=== PATIENT | female | born 1970 | race Caucasian/White ===

== ENCOUNTER 2019-09-20 08:52 | Outpatient (CLI) | payer OTHER, SELFPAY ==
[2019-09-20 09:20] LABS: Add Urine Microscopic? YES; Appearance Urine Turbid (Clear); Bacteria Urine 1+ /hpf; Bilirubin Urine Negative (Negative); Blood Urine 1+ (Negative); Color Urine Yellow (Yellow); Glucose Urine UA Negative (Negative); Ketones Urine Negative (Negative); Leukocyte Esterase Ur 3+ LEU/UL (Negative); Mucus Urine Moderate /lpf; Nitrate Urine Negative (Negative); Protein Urine 2+ mg/dL (Negative); RBC Urine 51-75 /hpf (0-2); Specific Grav Ur 1.019 (1.001-1.035); Squamous Epithelial Cell Urine Many /hpf (Few); WBC Urine >75 /hpf
== END 2019-09-20 08:53 | disposition home or self-care (01) ==
PROVIDERS: PCP Internal Medicine; Visit Provider Internal Medicine
DX: R30.0 Dysuria (principal)
CPT/HCPCS: 81001; 87077; 87086; 87088; 87186

== ENCOUNTER → 2020-11-06 16:49 | Outpatient (CLI) | payer OTHER, SELFPAY ==
--- NOTE | ~2020-11-06 | MM_ITS ---
EXAMINATION: MM screening [facility] BI w [facility]ally HISTORY: Screening mammogram TECHNIQUE: Craniocaudal and mediolateral oblique 3-D tomosynthesis images were obtained and synthetic 2-D images were generated. CAD analysis was submitted and interpreted. COMPARISON: No prior mammogram is available for comparison at this institution. BREAST PARENCHYMAL COMPOSITION: There are scattered areas of fibroglandular density. FINDINGS: There are 2 biopsy markers on the right; history of prior benign right breast biopsy. New 5.5 mm mass in the lower inner quadrant of the right breast. Approximately 3.4 x 4.4 mm circumscribed density in the right axillary tail, increased in size from a pproximately 2.4 x 3.8 mm on 07/31/2018. 3.5 mm circumscribed opacity in the posterior upper left breast (left MLO Tomosynthesis image ). Diagnostic bilateral mammogram and breast ultrasound examination are recommended. IMPRESSION: 1. Bilateral breast masses 2. Diagnostic bilateral mammogram and breast ultrasound are recommended BI-RADS Category 0: Incomplete: Needs additional imaging evaluation. Reviewed, dictated and finalized at location A.
== END ==
PROVIDERS: Visit Provider Physician Assistant
DX: Z12.31 Encounter for screening mammogram for malignant neoplasm of breast (principal); R92.8 Other abnormal and inconclusive findings on diagnostic imaging of breast
CPT/HCPCS: 77063; 77067

== ENCOUNTER → 2020-12-02 08:16 | Outpatient (CLI) | payer OTHER, SELFPAY ==
--- NOTE | ~2020-12-02 | MMUS_ITS ---
EXAMINATION: MM diagnostic mammo BI, US breast LT limited, US breast RT complete HISTORY: Bilateral breast masses reported on 11/06/2020 screening mammogram TECHNIQUE: Additional 3-D tomosynthesis images of both breasts were performed and synthetic 2-D image s were generated. CAD analysis was submitted and interpreted. High resolution complete right and uppe r outer quadrant left breast ultrasound was performed. COMPARISON: 11/06/2020 bilateral digital screening mammogram 01/30/2015 bilateral digital screening mammogram FINDINGS: MAMMOGRAPHIC FINDINGS: Partially circumscribed 5 mm mass is noted in the lower inner quadrant of the left breast. Circumscribed 3.8 mm mass at the posterior aspect of the upper outer left breast, most likely a benig n intramammary lymph node. Otherwise no new suspicious mammographic mass of either breast is evident compared to 03/04/2015. Stable benign circumscribed right axillary tail lymph node compared to 01/30/2015. Diminished size and density of a mass in the upper mid right breast slightly lateral to the mid sagit helen plane since 01/30/2015. There are 2 biopsy markers on the right. History of prior benign right breast biopsies. ULTRASOUND: Right breast: 12:00 3 cm from nipple: 9 x 4 x 9.5 mm circumscribed hypoechoic area which likely corresponds to the upper mid right mammographic mass which has diminished in size and density since 01/30/2015, most cons istent with benign process. 6:00 5 cm from nipple: Circumscribed heterogeneous hypoechoic 5.5 x 3 x 5 mm lesion without internal vascularity or posterior shadowing. 6 month targeted right breast ultrasound follow-up is recommended . 10:00 4 cm from nipple: Parallel circumscribed 4 x 8 x 8 mm hypoechoic lesion without posterior featu res; six-month follow-up ultrasound is recommended. Left breast: Benign circumscribed intramammary lymph node measuring approximately 2 x 5.8 mm is noted at 3:00 10 c m from nipple. IMPRESSION: 1. Probably benign right sonographic lesions at 6:00 5 cm from nipple and 10:00 4 cm from nipple 2. Six-month targeted right breast ultrasound follow-up is recommended. BI-RADS category 3, probably benign findings. Reviewed, dictated and finalized at location A. IMPRESSION: 1. Probably benign right sonographic lesions at 6:00 5 cm from nipple and 10:00 4 cm from nipple 2. Six-month targeted right breast ultrasound follow-up is recommended. BI-RADS category 3, probably benign findings. IMPRESSION: 1. Probably benign right sonographic lesions at 6:00 5 cm from nipple and 10:00 4 cm from nipple 2. Six-month targeted right breast ultrasound follow-up is recommended. BI-RADS category 3, probably benign findings.
== END ==
PROVIDERS: PCP Internal Medicine; Visit Provider Physician Assistant
DX: R92.8 Other abnormal and inconclusive findings on diagnostic imaging of breast (principal)
CPT/HCPCS: 76641; 76642; 77066

== ENCOUNTER 2021-11-28 11:23 | Emergency (ER) | payer OTHER, SELFPAY ==
[2021-11-28 11:40] VITALS: BP 109/69; PULSE 91; RESP 18; TEMP 36.6; O2SAT 99
--- NOTE | 2021-11-28 12:41 | ED.FEMALEGU ---
HPI - Female Genitourinary General Chief complaint: Urogenital-Female Stated complaint: Sore Throat,Possible UTI Time Seen by Provider: 11/28/21 12:41 Source: patient Mode of arrival: ambulatory Limitations: no limitations History of Present Illness HPI Narrative: Casie Neville is a 51 yo female with a PMH of depression, insomnia, GERD, stopped smoking 2019,recurrent uti, who comes with upper respiratory symptoms that started last Tuesday and feeling of dysuria and lower abdominal discomfort CVA tenderness that started 2 days ago. Patient has a history of UTI recurrent Related Data Home Medications Medication Instructions Recorded Confirmed fluoxetine 20 mg PO DAILY 11/28/21 11/28/21 omeprazole 20 mg PO DAILY 11/28/21 11/28/21 quetiapine 50 mg PO DAILY 11/28/21 11/28/21 Allergies Allergy/AdvReac Type Severity Reaction Status Date / Time Penicillins AdvReac Mild Hives Verified 11/28/21 12:24 Review of Systems Review of Systems: CONSTITUTIONAL: Denies fever, chills, sweats. Feels poorly EYES: Denies visual changes, redness, discharge. ENT: Denies rhinorrhea, has congestion, sore throat, otalgia. CARDIOVASCULAR: Denies chest pain, palpitations, edema. RESPIRATORY: Denies dyspnea, wheezing, cough GASTROINTESTINAL: Denies abdominal pain, nausea, vomiting, diarrhea. GENITOURINARY: Has dysuria, hematuria, abnormal discharge SKIN: Denies rash or itching. NEUROLOGIC: Denies numbness, or focal weakness. PSYCHIATRIC: Denies anxiety or depression. PMFSH Past Medical History Medical History Recurrent UTI Sinus problem Social History Social History (Updated 11/28/21 @ 12:45 by Dorene Guallpa CNP) Smoking status: Former smoker Smoking end date: 07/11/18 Alcohol intake: current Comments At time of signature, I agree with nursing past medical, surgical, social and family history. There is no relevant family history pertinent to the presenting complaint. Exam Narrative: GENERAL: This is a well-nourished, well-developed patient, in mild distress. Looks like is not feeling well HEAD: normocephalic, atraumatic. EYES: Sclera clear/white. Vision is grossly intact. EARS: External ears normal, auditory canals clear and without drainage, . Hearing grossly intact. NOSE: External nose normal without nasal discharge, nares without redness, has rhinorrhea. THROAT: Mucous membranes moist, posterior pharynx erythema NECK: Neck supple, CARDIOVASCULAR: Regular rate and rhythm without murmurs, gallops, or rubs. RESPIRATORY: Clear to auscultation. Breath sounds equal bilaterally. No wheezes, rales, or rhonchi. GASTROINTESTINAL: Abdomen soft, non-tender, SKIN: warm, intact with no suspicious lesions or rash, good texture and turgor. NEURO: awake, alert, and oriented to person, place and time. There were no obvious focal neurologic abnormalities. Steady gait EXTREMITIES: Normal range of motion. BACK: Mild left CVA tender Course Course Emergency Course: Patient comes with upper respiratory symptoms and also symptoms of dysuria Strep test was negative UA shows 1+ leukocytes and 1+ blood Started on Keflex and Medrol Dosepak-because of her difficulties to sleeping on her other medication told patient to take all steroids in the morning but stay on the gradual taper that is provided in the Medrol Dosepak Level of Care: Express Care Visit Vital Signs Vital signs: Vital Signs Temperature 97.9 F 11/28/21 11:40 Pulse Rate 91 11/28/21 11:40 Respiratory Rate 18 11/28/21 11:40 Blood Pressure 109/69 11/28/21 11:40 Pulse Oximetry 99 11/28/21 11:40 Temperature 97.9 F 11/28/21 11:40 Pulse Rate 91 11/28/21 11:40 Respiratory Rate 18 11/28/21 11:40 Blood Pressure 109/69 11/28/21 11:40 Pulse Oximetry 99 11/28/21 11:40 MDM - Female Genitourinary Differential Diagnosis Differential diagnosis: Likely urinary tract infection, cystitis and other
== END 2021-11-28 12:58 | disposition home or self-care (01) ==
PROVIDERS: Emergency Provider Nurse Practitioner; PCP Internal Medicine
DX: N30.90 Cystitis, unspecified without hematuria (principal); J06.9 Acute upper respiratory infection, unspecified; Z87.891 Personal history of nicotine dependence; F32.A Depression, unspecified; K21.9 Gastro-esophageal reflux disease without esophagitis
CPT/HCPCS: 81003; 87077; 87081; 87086; 87186; 87880; 99203; G0463

== ENCOUNTER 2022-06-04 11:35 | Outpatient (CLI) | payer OTHER, SELFPAY ==
[2022-06-04 12:35] LABS: Appearance Urine Slightly Cloudy (Clear); Bilirubin Urine Negative (Negative); Blood Urine 1+ (Negative); Color Urine Yellow (Yellow); Glucose Urine UA Negative (Negative); Ketones Urine Negative (Negative); Leukocyte Esterase Ur 2+ LEU/UL (Negative); Nitrate Urine Negative (Negative); Protein Urine Negative (Negative); Specific Grav Ur 1.015 (1.001-1.035); Urobilinogen Urine 0.2 mg/dL (<2.0)
[2022-06-04 13:01] LABS: Bacteria Urine Trace /hpf; Mucus Urine Rare /lpf; Squamous Epithelial Cell Urine Few /hpf (Few); WBC Urine 51-75 /hpf
[2022-06-04 13:02] LABS: Add Urine Microscopic? YES
== END 2022-06-04 11:36 | disposition home or self-care (01) ==
LOC: ANHLAB 11:38
PROVIDERS: PCP Internal Medicine; Visit Provider Internal Medicine
DX: R30.0 Dysuria (principal)
CPT/HCPCS: 81001; 87086; 87088

== ENCOUNTER 2022-06-21 15:59 | Outpatient (CLI) | payer OTHER, SELFPAY ==
--- NOTE | ~2022-06-21 | XR_ITS ---
EXAM: XR foot RT min 3V DATE: 06/21/2022 17:41 HISTORY: PAIN AFTER INJURY 3 WKS AGO. REDNESS TO 2-4 METATARSALS . COMPARISON: None available. FINDINGS: Normal mineralization. Nondisplaced transverse fracture at the third metatarsal head, with evidence of early healing change. No lytic or blastic lesion. Moderate hallux valgus and first MTP j oint degenerative change. No erosion or periosteal change. Soft tissues within normal limits. IMPRESSION: Subacute nondisplaced transverse third metatarsal head fracture. Reviewed, dictated and finalized at location K. DEVELOPER
== END 2022-06-21 16:00 | disposition home or self-care (01) ==
LOC: ANHIMG 16:03
PROVIDERS: PCP Internal Medicine; Visit Provider Internal Medicine
DX: S92.334A Nondisplaced fracture of third metatarsal bone, right foot, initial encounter for closed fracture (principal); X58.XXXA Exposure to other specified factors, initial encounter
CPT/HCPCS: 73630

== ENCOUNTER 2022-10-16 09:05 | Emergency (ER) | payer OTHER, SELFPAY ==
[2022-10-16 09:14] VITALS: BP 104/70; PULSE 92; RESP 20; TEMP 37; O2SAT 99
--- NOTE | 2022-10-16 09:53 | ED.GENADULT ---
HPI - General Adult General Chief complaint: Upper Respiratory Infection Stated complaint: Vomiting,Diarrhea,Body Aches,Possible UTI Time Seen by Provider: 10/16/22 09:43 Source: patient Mode of arrival: ambulatory Limitations: no limitations History of Present Illness HPI narrative: Patient presents today complaining of lower abdominal and back pain since yesterday with urinary retention and malodorous urine with urinary frequency. Two days ago she experienced chills, body aches, vomiting and diarrhea that has since mostly subsided. Still has been able to keep down oral fluids and is producing normal amount of urine. She has tried [id number] Tylenol for back pain. Related Data Home Medications Medication Instructions Recorded Confirmed fluoxetine 20 mg capsule (Prozac) 40 mg PO DAILY 05/26/20 10/16/22 omeprazole 20 mg capsule,delayed 20 mg PO DAILY 11/28/21 10/16/22 release quetiapine 50 mg tablet 50 mg PO DAILY 11/28/21 10/16/22 lamotrigine 25 mg tablet 50 mg PO HS 10/16/22 10/16/22 Allergies Allergy/AdvReac Type Severity Reaction Status Date / Time Penicillins AdvReac Mild Hives Verified 10/16/22 09:19 Review of Systems Review of Systems: CONSTITUTIONAL: Denies fever, chills, or sweats.+ body aches EYES: Denies visual changes, redness, or discharge. ENT: Denies rhinorrhea, congestion, sore throat, or otalgia. CARDIOVASCULAR: Denies chest pain, palpitations, or edema. RESPIRATORY: Denies cough or dyspnea. GASTROINTESTINAL: Denies vomiting, or diarrhea.+ lower abdominal pain, nausea GENITOURINARY: Denies dysuria or hematuria.+ urinary retention, malodorous urine, urinary frequency SKIN: Denies rash, itching, or wounds. MUSCULOSKELETAL: Denies joint pain, or myalgia.+ low back pain NEUROLOGIC: Denies headache, numbness, tingling, or weakness. PSYCH: Denies depression or anxiety. [facility] Past Medical History Medical History Anemia BMI 26.0-26.9,adult Recurrent UTI Sinus problem Family History Family History Mother Patient's mother is in good health Family history of malignant neoplasm of kidney Father Patient's father is in good health Social History Social History Smoking packs per day: 1 Smoking cigarettes per day: 20.0 Years smoked: 35 Smoking pack-years: 35.00 Smoking status: Former smoker Second hand tobacco smoke exposure: No Smoking end date: 07/11/18 Alcohol intake: current Lack of Transportation: No Lack of Food: Never True Current Housing: I Have Housing Concerned About Future Housing: No Difficulty Paying Gas/Electric Bills: No Difficulty Paying for Meds: No Currently Unemployed: Decline to Answer Education: Associate Degree Difficulty w/ Childcare or Family Care: No Comments At time of signature, I have reviewed and agree with nursing past medical, surgical, social and family history unless otherwise noted. Please see nursing chart for further information. There is no relevant family history pertinent to the presenting complaint Exam Narrative: GENERAL: Well-appearing, well-nourished, and in no acute distress. HEAD: Normocephalic, atraumatic. EYES: EOMI. No redness or drainage. Conjunctivae normal. ENT: Mucous membranes pink and moist. Nares clear. NECK: Normal AROM. Supple. No lymphadenopathy. CHEST: No respiratory distress. Clear to auscultation. HEART: Regular rate and rhythm. No murmur appreciated. Normal peripheral pulses. ABDOMEN: Soft, nondistended, normal active bowel sounds.+ mild suprapubic tenderness.-CVAT EXTREMITIES: Normal range of motion. No edema. SKIN: Warm, dry, no rash. Capillary refill normal. Normal skin turgor. NEURO: No focal deficits. Alert and oriented x3. Gait steady. PSYCH: Normal affect. No signs of depression or anxiety.
== END 2022-10-16 10:00 | disposition home or self-care (01) ==
PROVIDERS: Emergency Provider Nurse Practitioner; PCP Internal Medicine
DX: N30.01 Acute cystitis with hematuria (principal); Z87.891 Personal history of nicotine dependence
CPT/HCPCS: 81003; 87077; 87086; 87186; 99213; G0463

== ENCOUNTER 2022-11-04 09:39 | Emergency (ER) | payer OTHER, SELFPAY ==
--- NOTE | ~2022-11-04 | XR_ITS ---
EXAMINATION: XR ankle LT min 3V DATE: 11/04/2022 12:55 INDICATION: Bimalleolar fracture TECHNIQUE: Anteroposterior, oblique and lateral views of the affected ankle were obtained. COMPARISON: None. FINDINGS: Fiberglas splinting material about the left ankle and hindfoot which obscures fine bone and soft tiss ue detail. There are comminuted metaphyseal fractures of the distal left tibia and fibula with approx imately 20 degree posterior angulation. There is also approximately 3 mm posterolateral displacement of the main proximal distal tibial fragments and 5 mm posterolateral displacement of the main proxima l distal fibular fragments. Ankle mortise remains congruent. No fractures evident in the visualized l eft foot. 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 IMPRESSION: 1. Mild posterolateral displacement and approximately 20 degrees posterior angulation of comminuted f ractures of the distal left tibial and fibular metaphysis. Reviewed, dictated and finalized at location A. IMPRESSION: 1. Mild posterolateral displacement and approximately 20 degrees posterior angu lation of comminuted fractures of the distal left tibial and fibular metaphysis .
[2022-11-04 09:44] VITALS: BP 108/69; PULSE 79; RESP 18; TEMP 36.3; O2SAT 100
--- NOTE | 2022-11-04 12:33 | ED.LOWEXIN ---
HPI - Extremity Injury (Lower) General Chief Complaint: Extremity Injury, Lower <REBECCA Hector Last Filed: 11/04/22 18:26> Stated Complaint: broken left leg <REBECCA Hector Last Filed: 11/04/22 18:26> Time Seen by Provider: 11/04/22 11:55 <REBECCA Hector Last Filed: 11/04/22 18:26> History of Present Illness HPI Narrative: Patient is a 52-year-old female here for evaluation of left leg pain x 1 day. Patient had a fall this morning and was diagnosed with a bimalleolar ankle fracture this morning at a hospital in [place]. Patient was placed in a splint, told that she needs to go to a trauma center once her flight landed. Patient presented to the emergency department here expecting to see an orthopedist today. She is tearful and agitated. She had a prescription for hydrocodone sent to [facility] but she has not yet picked this up. Denies any numbness or tingling in the leg, chest pain or shortness of breath. <REBECCA Hector Last Filed: 11/04/22 18:26> Related Data Home Medications: Home Medications Medication Instructions Recorded Confirmed fluoxetine 20 mg capsule (Prozac) 40 mg PO DAILY 05/26/20 10/16/22 omeprazole 20 mg capsule,delayed 20 mg PO DAILY 11/28/21 10/16/22 release quetiapine 50 mg tablet 50 mg PO DAILY 11/28/21 10/16/22 lamotrigine 25 mg tablet 50 mg PO HS 10/16/22 10/16/22 <REBECCA Hector Last Filed: 11/04/22 18:26> Allergies/Adverse Reactions: Allergies Allergy/AdvReac Type Severity Reaction Status Date / Time Penicillins AdvReac Mild Hives Verified 11/04/22 11:58 <REBECCA Hector Last Filed: 11/04/22 18:26> Review of Systems Review of Systems: Gen.: Denies fevers or chills Eyes: Denies eye pain or visual change ENT: Denies congestion Respiratory: Denies shortness of breath or cough CV: Denies chest pain or palpitations GI: Denies abdominal pain nausea, emesis or diarrhea : denies burning, urgency, frequency or hematuria Musculoskeletal: Reports leg pain Neuro: Denies numbness, tingling, weakness or focal weakness Skin: Denies rash Except as documented, all other systems reviewed and negative <Mai Muhammad PA-C - Last Filed: 11/04/22 18:26> [facility] Past Medical History Medical History: Medical History Anemia BMI 26.0-26.9,adult Recurrent UTI Sinus problem <Mai Muhammad PA-C - Last Filed: 11/04/22 18:26> Family History Family History: Family History Mother Patient's mother is in good health Family history of malignant neoplasm of kidney Father Patient's father is in good health <Mai Muhammad PA-C - Last Filed: 11/04/22 18:26> Social History Social History: Social History Smoking packs per day: 1 Smoking cigarettes per day: 20.0 Years smoked: 35 Smoking pack-years: 35.00 Smoking status: Former smoker Second hand tobacco smoke exposure: No Smoking end date: 07/11/18 Alcohol intake: current Lack of Transportation: No Lack of Food: Never True Current Housing: I Have Housing Concerned About Future Housing: No Difficulty Paying Gas/Electric Bills: No Difficulty Paying for Meds: No Currently Unemployed: Decline to Answer Education: Associate Degree Difficulty w/ Childcare or Family Care: No <Mai Muhammad PA-C - Last Filed: 11/04/22 18:26> Exam Narrative: APPEARANCE: Tearful, agitated Head: Normocephalic and atraumatic. EYES: PERRLA/EOMI, conjunctivae clear NOSE: No nasal drainage EARS: External ear normal in appearance THROAT: Oropharynx is clear. Mucous membranes are moist. NECK: Supple. No adenopathy, no masses. RESPIRATORY: Airway patent, respirations nonlabored. Clear to auscultati
[2022-11-04] MEDS: HYDROcodone/acetaminophen (*CRX) 5-325 MG TABLET 1 TAB PO ×2 (12:56→17:21)
[2022-11-04 12:59] VITALS: BP 106/69; PULSE 78; RESP 18; O2SAT 95
[2022-11-04 15:06] VITALS: BP 117/83; PULSE 74; RESP 14; O2SAT 99
[2022-11-04 16:50] VITALS: BP 114/80; PULSE 71; RESP 15; O2SAT 99
[2022-11-04] MEDS: SODIUM CHLORIDE 0.9% IV 1,000 ML 125 ML IV CONT (17:20)
[2022-11-04] MEDS: IBUPROFEN 400 MG TABLET PO (17:21)
[2022-11-04 17:24] LABS: Basophils Percent Auto 0.4 % (0.2-1.2); Eosinophils Absolute Auto 0.1 K/mm3 (0-0.3); Eosinophils Percent Auto 1.3 % (0-4.4); Hematocrit 33.8 % (37.0-47.0); Hemoglobin 10.3 g/dL (12.0-15.0); Immature Granulocyte Absolute 0.01 K/mm3 (0.00-0.031); Immature Granulocyte Percent A 0.1 % (0-0.5); Lymphocytes Absolute Auto 3.03 K/mm3 (0.9-3.2); Lymphocytes Percent Auto 32.2 % (18.3-44.2); Mean Corpuscular HGB Conc 30.5 g/dl (32-36); Mean Corpuscular Hemoglobin 25.6 pg (26-34); Mean Corpuscular Volume 83.9 fl (80-100); Mean Platelet Volume 11.1 fl (7.4-10.4); Monocytes Absolute Auto 0.8 K/mm3 (0.1-0.6); Monocytes Percent Auto 8.5 % (2.6-8.5); Neutrophils Absolute Auto 5.4 K/mm3 (1.3-6.7); Neutrophils Percent Auto 57.5 % (45.5-73.1); Platelet Count Result 343 k/mm3 (150-375); Red Blood Count 4.03 M/mm3 (4.2-5.4); White Blood Count 9.4 K/mm3 (4.5-10.0)
[2022-11-04 17:28] LABS: Anion Gap 6 mmol/L (8-16); Blood Urea Nitrogen 11 mg/dL (7-17); Calcium 8.2 mg/dL (8.4-10.2); Carbon Dioxide 27 mmol/L (22-30); Chloride 98 mmol/L (98-107); Estimated CRCL calculation 66 ml/min; Estimated Glomerular Filt Rate > 60; Glucose 86 mg/dL (65-110); Potassium 4.2 mmol/L (3.4-5.0); Sodium 131 mmol/L (137-145)
[2022-11-04 17:32] LABS: INR 0.9; Prothrombin Time 12.8 Seconds (11.1-14.7)
[2022-11-04 17:33] LABS: Partial Thromboplastin Time 25.5 SECONDS (22.3-36.8)
[2022-11-04] MEDS: ENOXAPARIN 40 MG/0.4 ML SYRINGE SUB-Q (18:31)
[2022-11-04] MEDS: PANTOPRAZOLE 40 MG TABLET PO (19:57)
[2022-11-04] MEDS: ONDANSETRON INJ 4 MG/2 ML VIAL IV PUSH (19:57)
[2022-11-04] MEDS: MORPHINE SULFATE (*CRX) 4 MG/ML INJ IV PUSH (19:57)
[2022-11-04 20:04] VITALS: BP 107/72; PULSE 71; RESP 17; O2SAT 100
--- NOTE | 2022-11-11 15:15 | PC.NURSE ---
LATE ENTRY This note is being entered to document information to the patient's record. The following information was omitted on [11/04/22], by [Genoveva Myers RN]. IV NS stop time is 1615pm.
== END 2022-11-04 20:33 | disposition short-term general hospital (02) ==
PROVIDERS: Emergency Provider Physician Assistant; PCP Internal Medicine
DX: S89.192A Other physeal fracture of lower end of left tibia, initial encounter for closed fracture (principal); S89.392A Other physeal fracture of lower end of left fibula, initial encounter for closed fracture; D64.9 Anemia, unspecified; Z87.891 Personal history of nicotine dependence; W19.XXXA Unspecified fall, initial encounter
CPT/HCPCS: 36415; 73610; 80048; 85025; 85610; 85730; 96372; 96374; 96375; 99284; A9270; J1650; J2270; J2405; J7030

== ENCOUNTER 2023-04-28 00:52 | Day surgery (SDC) | payer OTHER, SELFPAY ==
[2023-04-19 13:20] VITALS: BMI 26.4
[2023-04-28 11:49] VITALS: BMI 25.9
[2023-04-28 12:00] VITALS: BP 118/82; PULSE 74; RESP 18; TEMP 36.2; O2SAT 99
[2023-04-28] MEDS: LACTATED RINGERS 1,000 ML 150 ML IV CONT (12:31)
--- NOTE | 2023-04-28 12:38 | P.PNAN_ITS ---
Anes - Initial Pre Proc Eval Procedure: Operation Date: 04/28/23 13:00 Proposed Procedures p Esophagogastroduodenoscopy & Colonoscopy - Fernando Gilbert MD Date/Time: 04/28/23 12:38 Surgeon: Fernando Gilbert MD Pre Op Diagnosis: Acute posthemorrhagic anemia Patient Data Age: 52 Gender: F Height: 1.63 m Weight: 68.5 kg Allergies Allergy/AdvReac Type Severity Reaction Status Date / Time Penicillins AdvReac Mild Hives Verified 04/19/23 13:05 Home Medications Medication Instructions Recorded Confirmed Type fluoxetine 20 mg capsule (Prozac) 40 mg PO DAILY 05/26/20 04/19/23 History omeprazole 20 mg capsule,delayed 20 mg PO DAILY 11/28/21 04/19/23 History release quetiapine 50 mg tablet 50 mg PO DAILY 11/28/21 04/19/23 History acyclovir 5 % topical cream 1 applic topical .COMPLEX #30 grams 02/04/23 04/19/23 Rx progesterone micronized 100 mg 100 mg PO QHS 04/11/23 04/19/23 History capsule multivitamin 1 tablet PO DAILY 04/19/23 04/19/23 History valacyclovir 1 gram tablet 2,000 mg PO BID PRN Cold Sores 04/19/23 04/19/23 History (Valtrex) Patient hx anesthesia problems: none Family hx anesthesia problems: none Results Review: All pre-operative results and documents have been reviewed as part of the pre- operative evaluation. [facility] Past Medical History Medical History Anemia BMI 26.0-26.9,adult Recurrent UTI Sinus problem Family History Family History Mother Patient's mother is in good health Family history of malignant neoplasm of kidney Father Patient's father is in good health Social History Social History Smoking packs per day: 1 Smoking cigarettes per day: 20.0 Years smoked: 30 Smoking pack-years: 30.00 Smoking status: Former smoker Tobacco type: cigarettes Second hand tobacco smoke exposure: No Smoking end date: 07/11/18 Alcohol intake: never Substance use: never Substance use type: does not use Lack of Transportation: No Lack of Food: Never True Current Housing: I Have Housing Concerned About Future Housing: No Difficulty Paying Gas/Electric Bills: No Difficulty Paying for Meds: No Currently Unemployed: Decline to Answer Education: Associate Degree Difficulty w/ Childcare or Family Care: No Living arrangements: with family Spiritual care concerns: No Anes - Eval Final PreProcedure Day of Procedure 04/28/23 12:38 Patient weight: normal Heart: regular rate and rhythm Lungs: clear to auscultation Airway: Mallampati scale class II Neurological: alert and oriented Last oral intake: >/= 8 hours ASA classification: II Emergent: no Anesthetic plan: proceed Anesthesia type and monitoring: general GIVS and standard monitoring Results Review: All pre-operative results and documents have been reviewed as part of the pre- operative evaluation. Informed Consent: The patient's anesthetic plan and its attendant risks and benefits were discussed with the patient/family/POA. Questions were solicited and answers provided to the satisfaction of the patient/family/POA.
--- NOTE | 2023-04-28 13:00 | PM.HPGS ---
History of Present Illness History of Present Illness Consent: Risks, benefits, and alternatives have been discussed and questions answered. Patient agrees to proceed with procedure. Chief complaint: iron deficiency anemia Narrative: Casie Neville is a 52 year old female Referred for both colonoscopy and EGD by Abdi Zamorano. Patient found to have anemia on routine screening exam. Iron studies were found to be consistent with iron deficiency. Patient denies any bleeding. She denies nose bleeds, bruising or blood in her urine. She states stools occasionally have been dark. She has been on iron replacement intermittently. She denies any recent stool testing. She does have a past history of heartburn. In GE reflux disease. Previous colonoscopy confirms history of hemorrhoids. Family history is noncontributory. Review of Systems Review of Systems: Review of systems noncontributory. [facility] Past Medical History Medical History Anemia BMI 26.0-26.9,adult Recurrent UTI Sinus problem Family History Family History Mother Patient's mother is in good health Family history of malignant neoplasm of kidney Father Patient's father is in good health Social History Social History Smoking packs per day: 1 Smoking cigarettes per day: 20.0 Years smoked: 30 Smoking pack-years: 30.00 Smoking status: Former smoker Tobacco type: cigarettes Second hand tobacco smoke exposure: No Smoking end date: 07/11/18 Alcohol intake: never Substance use: never Substance use type: does not use Lack of Transportation: No Lack of Food: Never True Current Housing: I Have Housing Concerned About Future Housing: No Difficulty Paying Gas/Electric Bills: No Difficulty Paying for Meds: No Currently Unemployed: Decline to Answer Education: Associate Degree Difficulty w/ Childcare or Family Care: No Living arrangements: with family Spiritual care concerns: No Meds Home Medications and Allergies Home Medications Medication Instructions Recorded Confirmed Type fluoxetine 20 mg capsule (Prozac) 40 mg PO DAILY 05/26/20 04/19/23 History omeprazole 20 mg capsule,delayed 20 mg PO DAILY 11/28/21 04/19/23 History release quetiapine 50 mg tablet 50 mg PO DAILY 11/28/21 04/19/23 History acyclovir 5 % topical cream 1 applic topical .COMPLEX #30 grams 02/04/23 04/19/23 Rx progesterone micronized 100 mg 100 mg PO QHS 04/11/23 04/19/23 History capsule multivitamin 1 tablet PO DAILY 04/19/23 04/19/23 History valacyclovir 1 gram tablet 2,000 mg PO BID PRN Cold Sores 04/19/23 04/19/23 History (Valtrex) Allergies Allergy/AdvReac Type Severity Reaction Status Date / Time Penicillins AdvReac Mild Hives Verified 04/19/23 13:05 Exam Narrative: Physical exam reveals patient to be alert. Vital signs stable. HEENT exam is unremarkable. Patient is anicteric. Lungs are clear to auscultation and percussion. Heart is without murmur or extra sounds. Abdomen bowel sounds are present soft nontender with no organomegaly. Digital external rectal exam normal. Assessment and Plan Assessment and plan (1) Iron deficiency: Code(s): E61.1 - Iron deficiency Status: Acute Assessment and Plan: Patient with iron deficiency. She has mild anemia. Plan for colonoscopy an EGD to assess more thoroughly to exclude signs of GI blood loss. Stool Hemoccult may be of some benefit at some point. (2) GERD (gastroesophageal reflux disease): Code(s): K21.9 - Gastro-esophageal reflux disease without esophagitis Status: Acute Assessment and Plan: Patient with heartburn. Currently controlled with omeprazole 20mg p.o. daily. She occasionally has breakthrough heartburn. EGD requested will be performed to
--- NOTE | 2023-04-28 13:12 | SUR.OPER ---
EGD: START-131 END-1314. COLON: START-1321 END-1334
[2023-04-28 13:37] VITALS: BP 86/54; PULSE 74; RESP 24; O2SAT 96
[2023-04-28 13:47] VITALS: BP 98/59; PULSE 71; RESP 27; O2SAT 100
[2023-04-28 13:57] VITALS: BP 104/65; PULSE 67; RESP 19; O2SAT 100
== END 2023-04-28 14:08 | disposition home or self-care (01) ==
PROVIDERS: PCP Internal Medicine; Visit Provider Internal Medicine Gastroenterology
PROC: 0DJ08ZZ Inspection of Upper Intestinal Tract, Via Natural or Artificial Opening Endoscopic (ICD-10-PCS; CPT 43235; principal; 2023-04-28 13:00)
DX: Z12.11 Encounter for screening for malignant neoplasm of colon (principal); K64.8 Other hemorrhoids; D50.9 Iron deficiency anemia, unspecified; K21.00 Gastro-esophageal reflux disease with esophagitis, without bleeding; K29.80 Duodenitis without bleeding; Z87.891 Personal history of nicotine dependence
CPT/HCPCS: 45378; 43239; 88305; J2704; J7120

== ENCOUNTER 2023-07-30 09:01 | Outpatient (CLI) | payer OTHER, SELFPAY ==
--- NOTE | ~2023-07-30 | DEXA_ITS ---
Bone Density Report Name: JUDI MCMANUS Age: 52 Sex: Female Ethnicity: White Date of : 1970 Indication: postmenopausal; screening for osteoporosis; height loss; prior fracture; hysterectomy; Referring Provider: Abdi Zamorano Study: Bone densitometry was performed. Exam Date: July 30, 2023 Accession number: [id number] Bone Density: Region BMD T-score Z-score Classification AP Spine (L1-L4) 0.807 -2.2 -1.2 Osteopenia Femoral Neck (Left) 0.613 -2.1 -1.2 Osteopenia Total Hip (Left) 0.673 -2.2 -1.6 Osteopenia Femoral Neck (Right) 0.633 -1.9 -1.0 Osteopenia Total Hip (Right) 0.712 -1.9 -1.3 Osteopenia Total Hip Mean 0.693 -2.1 -1.5 Osteopenia World Health Organization criteria for BMD impression classify patients as: Normal (T-score at or above -1.0), Osteopenia (T-score between -1.0 and -2.5), or Osteoporosis (T-score at or below -2.5). 10-year Fracture Risk(1): Major Osteoporotic Fracture 13% Hip Fracture 1.8% Reported Risk Factors: [place] (), Neck BMD=0.613, BMI=27.7, previous fracture (1) FRAX(R) Version 3.08. Fracture probability calculated for an untreated patient. Fracture probability may be lower if the patient has received treatment. Clinical Information Provided by Patient: Has had a low trauma fracture Has used the following medications: HRT (i.e. estrogen/hormone therapy), Vitamin D, Calcium Has the following medical conditions: Hysterectomy Patient maximum height was 64 Menopause Age: 42 Drinks caffeinated beverages Onset of menses at age 10 Number of children 2 Impression: The patient has low bone mass, based on the Total Spine T-score. The patient has an estimated ten-year risk of hip fracture of 1.8% and an estimated ten-year risk of major fracture of 13%, based on the WHO FRAX algorithm. The patient has risk factors, including: previous fracture. Discussion: BONE DENSITY IS LOW AT ONE OR MORE SKELETAL SITES. This patient's lowest T-score is low at one or more skeletal sites. It meets the World Health Organization's (WHO) criteria for ?low bone mass? (T-score between -1.0 and -2.5). The patient's 10-year risk of fracture as calculated by FRAX is less than the threshold where pharmacological therapy is recommended by the National Osteoporosis Foundation (NOF). However, all treatment decisions require clinical judgment and consideration of individual patient factors, including patient preferences, comorbidities, previous drug use, risk factors not captured in the FRAX model (e.g., frailty, falls, vitamin D deficiency, increased bone turnover, interval significant decline in bone density) and possible under or overestimation of fracture risk by FRAX. The patient should follow a healthful lifestyle (good nutrition with adequate calcium and vitamin D, and appropriate
--- NOTE | ~2023-07-30 | MM_ITS ---
EXAMINATION: MM screening [facility] BI w wally HISTORY: Screening mammogram TECHNIQUE: Craniocaudal and mediolateral oblique 3-D tomosynthesis images were obtained and synthetic 2-D images were generated. CAD analysis was submitted and interpreted. COMPARISON: 12/02/2020, 11/06/2020, 07/31/2018, 01/30/2015 BREAST PARENCHYMAL COMPOSITION: There are scattered areas of fibroglandular density. FINDINGS: There are stable right breast masses including a mass in the lower inner right breast recom mended for surveillance imaging in 2020. Given interval stability, a mass is considered benign. No denis spicious mass, calcification, or architectural distortion are identified in either breast to suggest malignancy. There has been no suspicious interval change. IMPRESSION: 1. No mammographic evidence of malignancy. 2. Recommend routine screening mammography in one year. BI-RADS Category 2: Benign finding(s). Reviewed, dictated and finalized at location A. BOTOMY TECHNICIAN
== END 2023-07-30 09:02 ==
LOC: MICIMG 09:02
PROVIDERS: PCP Physician Assistant; Visit Provider Physician Assistant
DX: Z12.31 Encounter for screening mammogram for malignant neoplasm of breast (principal); M85.80 Other specified disorders of bone density and structure, unspecified site; Z78.0 Asymptomatic menopausal state
CPT/HCPCS: 77063; 77067; 77080

== ENCOUNTER 2023-11-17 16:59 | Emergency (ER) | payer OTHER, SELFPAY ==
[2023-11-17 17:10] VITALS: BP 111/79; PULSE 65; RESP 18; TEMP 36.3; O2SAT 98
--- NOTE | 2023-11-17 17:38 | ED.URI ---
HPI - URI/Sore Throat General Chief Complaint: Upper Respiratory Infection Stated Complaint: Sore Throat and Dry Cough Time Seen by Provider: 11/17/23 17:25 Source: patient, RN notes reviewed and old records reviewed Mode of arrival: ambulatory Limitations: no limitations History of Present Illness HPI Narrative: 53-year-old female presents to [facility] with complaints of sore throat since last Tuesday with dry cough. Patient reports that she has had increased sore since last night. Patient reports that she does have history of GERD and takes medication daily for this. Patient reports that she does have increase cough at night denies any nasal drainage no fevers or any ear pain. Patient reports that she has been taking Robitussin, Mucinex Tussin for cough without resolution. MD elicited complaint: cough and sore throat Pertinent past history: pneumonia and sinusitis Onset (ago): week(s) (1) Pain scale (0-10): 6 Able to tolerate fluids by mouth: Yes Treatments prior to arrival: other (robitussin, mucinex) Related Data Home Medications Medication Instructions Recorded Confirmed fluoxetine 20 mg capsule (Prozac) 40 mg PO DAILY 05/26/20 11/17/23 multivitamin 1 tablet PO DAILY 04/19/23 11/17/23 Allergies Allergy/AdvReac Type Severity Reaction Status Date / Time Penicillins AdvReac Mild Hives Verified 11/17/23 17:31 Review of Systems Review of Systems: CONSTITUTIONAL: Denies malaise, chills, sweats, or fever. EYES: Denies visual changes, redness, or discharge. ENT: Report sno rhinorrhea, congestion, sinus pain,no otalgia and positive sore throat. CARDIOVASCULAR: Denies chest pain, palpitations, or edema. RESPIRATORY: Reports dry cough.? Denies dyspnea. GASTROINTESTINAL: Denies abdominal pain, nausea, vomiting, diarrhea SKIN: Denies rash or itching. MUSCULOSKELETAL: Denies myalgia. NEUROLOGIC: Denies headache. All systems reviewed & are unremarkable except as noted in HPI and below PMFSH Past Medical History Medical History (Updated 11/19/23 @ 16:09 by Anabell Allen NP) Anemia Anxiety and depression BMI 26.0-26.9,adult Fracture of left tibia and fibula surgical repair Recurrent UTI Sinus problem Surgical History Surgical History (Updated 11/19/23 @ 16:07 by Anabell Allen NP) H/O: hysterectomy Family History Family History Mother Patient's mother is in good health Family history of malignant neoplasm of kidney Father Patient's father is in good health Social History Social History Smoking packs per day: 1 Smoking cigarettes per day: 20.0 Years smoked: 30 Smoking pack-years: 30.00 Smoking status: Former smoker Tobacco type: cigarettes Second hand tobacco smoke exposure: No Smoking end date: 07/11/18 Alcohol intake: never Substance use: never Substance use type: does not use Lack of Transportation: No Lack of Food: Never True Current Housing: I Have Housing Concerned About Future Housing: No Difficulty Paying Gas/Electric Bills: No Difficulty Paying for Meds: No Currently Unemployed: Decline to Answer Education: Associate Degree Difficulty w/ Childcare or Family Care: No Living arrangements: with family Spiritual care concerns: No Comments At time of signature, agree with nursing past medical, surgical, social and family history. There is no relevant family history pertinent to the presenting complaint Exam Narrative: GENERAL: Well-appearing, well-nourished, and in no acute distress. HEAD: Normocephalic EYES: PERRLA, conjunctivae clear ENT: Nares clear, turbinates edematous and erythematous, clear discharge. Mucous membranes moist. TM pearly suarez with dull light reflex bilaterally; no tragal tenderness. Oropharynx erythematous without lesions. Tonsils not enlarged and without exudate, no drooling, no
== END 2023-11-17 18:01 | disposition home or self-care (01) ==
PROVIDERS: Emergency Provider Registered Nurse; PCP Physician Assistant
DX: R05.9 Cough, unspecified (principal); J02.9 Acute pharyngitis, unspecified; Z87.891 Personal history of nicotine dependence; F41.9 Anxiety disorder, unspecified; F32.A Depression, unspecified
CPT/HCPCS: 87081; 87880; 99213; G0463

== ENCOUNTER 2023-11-22 09:44 | Outpatient (CLI) | payer OTHER, SELFPAY ==
--- NOTE | ~2023-11-22 | XR_ITS ---
Clinical Indication: Cough PA and lateral views of the chest: Comparison: 09/28/2011 Findings: The lungs are clear, without evidence of focal consolidation or pleural effusion. Cardiome diastinal silhouette is within normal limits. Osseous structures are intact. Moderate hiatal hernia p resent. Impression: Clear lungs. Moderate hiatal hernia. Reviewed, dictated and finalized at location . Impression: Clear lungs. Moderate hiatal hernia.
== END 2023-11-22 09:45 | disposition home or self-care (01) ==
LOC: ANHIMG 09:47
PROVIDERS: PCP Physician Assistant; Visit Provider Physician Assistant
DX: R05.9 Cough, unspecified (principal); K44.9 Diaphragmatic hernia without obstruction or gangrene
CPT/HCPCS: 71046